=== PATIENT | male | born 1955 | race Caucasian/White ===

== ENCOUNTER 2020-08-17 12:48 | Emergency (ER) | payer MEDICARE, OTHER ==
--- NOTE | 2020-08-17 13:05 | EDM.PDOC ---
ED HPI GENERAL MEDICAL PROBLEM - General Chief Complaint: Lower Extremity Injury/Pain Stated Complaint: RT HIP PAIN Time Seen by Provider: 08/17/20 12:58 Source of Information: Reports: Patient, RN Notes Reviewed - History of Present Illness INITIAL COMMENTS - FREE TEXT/NARRATIVE: 65 yr old male with R low back pain that started 5 ays ago. No known injury. Pain this morning did radiate down R ant. thigh a few times with certain types of motion. Has not had this before. No radiation of pain to R groin or abd. 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 Right Hip Pain Score (Numeric/FACES): 6 - Related Data Allergies Allergy/AdvReac Type Severity Reaction Status Date / Time No Known Allergies Allergy Verified 08/17/20 12:57 Home Meds: Home Meds Aspirin [Aspirin EC] 81 mg PO DAILY 08/17/20 [History] Carbidopa/Levodopa [Carbidopa-Levodopa 25-100 Tab] 1 tab PO QID 08/17/20 [History] Furosemide [Lasix] 20 mg PO DAILY 08/17/20 [History] atorvaSTATin [Lipitor] 40 mg PO DAILY 08/17/20 [History] carvediloL [Carvedilol] 25 mg PO BID 08/17/20 [History] lisinopriL [Lisinopril] 10 mg PO BID 08/17/20 [History] predniSONE [Prednisone] 50 mg PO DAILY #7 tablet 08/17/20 [Rx] Past Medical History HEENT History: Reports: Impaired Vision Cardiovascular History: Reports: High Cholesterol, Hypertension Neurological History: Reports: Concussion, Parkinson's - Past Surgical History Cardiovascular Surgical History: Reports: Pacer, Other (See Below) Other Cardiovascular Surgeries/Procedures: duble bypass, 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: benign GI Surgical History: Reports: Appendectomy, Cholecystectomy Musculoskeletal Surgical History: Reports: Other (See Below) Other Musculoskeletal Surgeries/Procedures:: left diann surgery Social & Family History - Tobacco Use Tobacco Use Status *Q: Never Tobacco User - Caffeine Use Caffeine Use: Reports: Tea - Recreational Drug Use Recreational Drug Use: No Review of Systems - Review of Systems Review Of Systems: See Below Constitutional: Denies: Chills, Diaphoresis, Fever Respiratory: Denies: Shortness of Breath, Cough Cardiovascular: Denies: Chest Pain GI/Abdominal: Denies: Abdominal Pain, Diarrhea, Nausea, Vomiting Musculoskeletal: Reports: Back Pain Skin: Reports: No Symptoms Neurological: Reports: No Symptoms ED EXAM, GENERAL - Physical Exam Exam: See Below General Appearance: Alert, No Apparent Distress Head: Atraumatic Neck: Supple Respiratory/Chest: No Respiratory Distress, Lungs Clear, Normal Breath Sounds Cardiovascular: Regular Rate, Rhythm GI/Abdominal: Soft, Non-Tender Back Exam: No: Paraspinal Tenderness, Vertebral Tenderness Extremities: Normal Inspection, Normal Range of Motion Neurological: Alert, Oriented, No Motor/Sensory Deficits Skin Exam: Warm, Dry, Normal Color, No Rash Course - Vital Signs Last Recorded V/S: Last Vital Signs Temp 98.2 F 08/17/20 12:51 Pulse 70 08/17/20 13:20 Resp 16 08/17/20 13:20 BP 147/75 H 08/17/20 13:20 Pulse Ox 96 08/17/20 13:20 Departure - Departure Time of Disposition: 13:21 Disposition: Home, Self-Care 01 Condition: Fair Clinical Impression: Back pain Qualifiers: Back pain location: low back pain Chronicity: acute Back pain laterality: right Sciatica presence: with sciatica Sciatica laterality: sciatica of right side Qualified Code(s): M54.41 - Lumbago with sciatica, right side - Discharge Information Prescriptions: predniSONE [Prednisone] 50 mg PO DAILY #7 tablet Referrals: PCP,None [Primary Care Provider] - Forms: ED Department Discharge Additional Instructions: Avoid heavy lifting. Continue to alternate ice and heat as needed. Tylenol 3 to 4 times daily. Prednisone 50 mg daily for 7 days, prescription has been sent to [facility], fill that now, they are only open until 4 this afternoon. Follow up clinic if not much better with in 3 to 5 days as expected. Sepsis Event Note (ED) - Evaluation Sepsis Screening Result: No Definite Risk - Focused Exam Vital Signs: Vital Signs Temp Pulse Resp BP Pulse Ox 08/17/20 13:20 70 16 147/75 H 96 08/17/20 12:51 98.2 F 69 18 151/78 H
== END 2020-08-17 14:00 | disposition home or self-care (01) ==
LOC: JD.ED 12:48
DX: M54.41 Lumbago with sciatica, right side (principal); I10 Essential (primary) hypertension; E78.00 Pure hypercholesterolemia, unspecified; G20 Parkinson's disease; Z90.49 Acquired absence of other specified parts of digestive tract; Z79.82 Long term (current) use of aspirin; Z79.899 Other long term (current) drug therapy
CPT/HCPCS: 99283

== ENCOUNTER 2021-11-01 14:17 | Emergency (ER) | payer MEDICARE, OTHER ==
[2021-11-01 15:51] LABS: CORONAVIRUS COVID-19 NAA NEGATIVE (NEGATIVE)
[2021-11-01] MEDS: Furosemide 40 MG/4 ML VIAL IVPUSH ONE (17:35)
== END 2021-11-01 18:40 | disposition home or self-care (01) ==
LOC: JD.ED 14:17
DX: I11.0 Hypertensive heart disease with heart failure (principal); I50.9 Heart failure, unspecified; E78.00 Pure hypercholesterolemia, unspecified; I44.7 Left bundle-branch block, unspecified; I45.10 Unspecified right bundle-branch block; Z79.82 Long term (current) use of aspirin; Z79.899 Other long term (current) drug therapy; Z20.822 Contact with and (suspected) exposure to COVID-19
CPT/HCPCS: 0240U; 36415; 71045; 71045-26; 71275; 71275-26; 80053; 83880; 84484; 85025; 85379; 86140; 93005; 96374; 99285-25; J1940